=== PATIENT | female | born 1985 | race Caucasian/White ===

== ENCOUNTER 2017-12-12 10:07 | Outpatient (CLI) | payer OTHER | END 2017-12-12 10:08 | disposition home or self-care (01) | LOC: BICMAMMO 10:07 | PROVIDERS: ATTEND Student in an Organized Health Care Education/Training Program | DX: N63.20 Unspecified lump in the left breast, unspecified quadrant (principal) | CPT/HCPCS: 77066; G0279 ==

== ENCOUNTER 2018-05-03 13:46 | Outpatient (CLI) | payer OTHER | END 2018-05-03 13:47 | disposition home or self-care (01) | LOC: BICULT 13:46 | PROVIDERS: ATTEND Internal Medicine Gastroenterology | DX: R10.9 Unspecified abdominal pain (principal) | CPT/HCPCS: 76700; 87177; 87324; 87449 ==

== ENCOUNTER 2018-08-24 12:35 | Outpatient (CLI) | payer OTHER ==
--- NOTE | 2018-08-24 19:21 | NM ---
HEPATOBILIARY SCAN: Comparison: Abdominal ultrasound 05-03-18. History: Right upper quadrant abdominal pain. Evaluate for gallbladder dyskinesia. Technique: A hepatobiliary scan was performed after the administration of 5.5 mCi Technetium 99M Mebr ofenin. FINDINGS: There is prompt uptake of the radiopharmaceutical by the liver. No photopenic liver lesions are seen. Biliary activity is seen within 10 minutes. Gallbladder activity is seen within 15 minutes. Bowel ac tivity is seen within 30 minutes. The gallbladder ejection fraction was estimated after administration of 8 oz of Ensure PO. This was e stimated at 87%. IMPRESSION: Normal hepatobiliary scan. POS: [facility]
== END 2018-08-24 12:36 | disposition home or self-care (01) ==
LOC: NM 12:35
PROVIDERS: ATTEND Internal Medicine Gastroenterology
DX: R10.11 Right upper quadrant pain (principal)
CPT/HCPCS: 78227; A9537

== ENCOUNTER 2019-02-01 11:12 | Emergency (ER) | payer OTHER ==
[2019-02-01] MEDS ORDERED: Ketorolac Tromethamine 60 MG/2 ML VIAL ONE (11:46)
[2019-02-01] MEDS ORDERED: Diazepam 5 MG TAB ONE (11:46)
== END 2019-02-01 12:51 | disposition home or self-care (01) ==
LOC: ERS 11:12
DX: S29.012A Strain of muscle and tendon of back wall of thorax, initial encounter (principal); X50.1XXA Overexertion from prolonged static or awkward postures, initial encounter
CPT/HCPCS: 96372; J1885

== ENCOUNTER 2019-10-31 09:11 | Emergency (ER) | payer OTHER ==
--- NOTE | 2019-10-31 10:58 | RAD ---
XR Chest 1 View Portable HISTORY: Chest pain and pressure. Left arm tingling. COMPARISON: None. FINDINGS: Heart size and mediastinum are within normal limits. The lungs are clear of infiltrates. No significant bony findings. IMPRESSION: No active intrathoracic disease.
[2019-10-31 11:02] LABS: #Basophils 0.1 thou/uL (0.0-0.2); #Eosinphils 0.1 thou/uL (0.0-0.7); #Lymphocytes 1.4 thou/uL (1.20-3.40); #Monocytes 0.6 thou/uL (0.11-0.59); #Neutrophils 7.1 thou/uL (1.40-6.50); %Basophils 0.6 % (0.0-1.0); %Eosinophils 0.5 % (0.0-10.0); %Monocytes 6.6 % (0.0-10.0); %Neutrophils 77.2 % (42.0-75.0); Hemoglobin 14.7 g/dL (12.0-16.0); Mean Corpuscular HGB CONC 33.6 g/dL (32.0-36.0); Mean Corpuscular Hemoglobin 30.7 pg (27.0-31.0); Mean Corpuscular Volume 91.3 fL (78.0-98.0); Mean Platelet Volume 9.2 fL (7.4-10.4); Platelet Count 232 thou/uL (130-400); RBC Distribution Width 11.5 % (11.5-14.5); White Blood Cell (WBC) Count 9.2 thou/uL (4.8-10.8)
--- NOTE | 2019-10-31 11:19 | CT ---
CT BRAIN WITHOUT CONTRAST: HISTORY: Tingling in the left arm, lightheadedness FINDINGS: No evidence of acute infarct, hemorrhage, midline shift or abnormal extra-axial fluid collections is seen. The ventricular size is appropriate and the basilar cisterns are patent. The bony calvarium is intact. The visualized paranasal sinuses and mastoid air cells are well aerated. IMPRESSION: No CT evidence of acute intracranial process.
[2019-10-31 11:33] LABS: ALT (SGPT) 10 U/L (8-55); AST (SGOT) 12 U/L (5-34); Albumin 4.7 g/dL (3.5-5.0); Alkaline Phosphatase 56 U/L (40-110); Anion Gap 13 mmol/L (10-20); BUN (Urea Nitrogen) 10 mg/dL (7.0-18.7); Bilirubin, Total 0.7 mg/dL (0.2-1.2); Calc. Creatinine Clearance 0 mL/min (70-130); Calcium 9.3 mg/dL (7.8-10.44); Carbon Dioxide 23 mmol/L (22-29); Chloride 106 mmol/L (98-107); Estimated GFR-MDRD 78; Globulin 2.8 g/dL (2.4-3.5); Glucose 88 mg/dL (70-105); Potassium 3.9 mmol/L (3.5-5.1); Protein, Total 7.5 g/dL (6.0-8.3); Sodium 138 mmol/L (136-145)
--- NOTE | 2019-10-31 12:16 | MRI ---
MRI Brain WO Con: 10/31/2019 11:24 AM CLINICAL HISTORY: 34-year-old female with tachycardia, chest pressure, numbness and tingling into lef t arm through the fingers that began this morning.. TECHNIQUE: Multiplanar, multisequence images were obtained of the brain. COMPARISON: CT the brain without contrast dated October 31, 2019 FINDINGS: Extra axial spaces: Normal in size and morphology for the patient's age. Hemorrhage: None. Ventricular system: Normal in size and morphology for the patient's age. Basal cisterns: Normal. Cerebral parenchyma: Normal. Midline shift: None. Cerebellum: Normal. Brainstem: Normal. OTHER: Calvarium: Normal. Vascular system: Normal. Visualized Paranasal sinuses: Clear. Visualized Orbits: Normal. Visualized upper cervical spine: Normal. Sella and skull base: Normal. IMPRESSION: No acute intracranial abnormality.
== END 2019-10-31 13:15 | disposition home or self-care (01) ==
LOC: ERS 09:11
DX: R07.89 Other chest pain (principal); G62.9 Polyneuropathy, unspecified; F41.9 Anxiety disorder, unspecified
CPT/HCPCS: 36415; 70450; 70551; 71045; 80053; 84484; 85025; 93005

== ENCOUNTER 2021-01-04 15:43 | Outpatient (CLI) | payer OTHER | END 2021-01-04 15:44 | disposition home or self-care (01) | LOC: BICRAD 15:43 | PROVIDERS: ATTEND Family Medicine | DX: M54.5 Low back pain (principal) | CPT/HCPCS: 72100; 72202 ==

== ENCOUNTER 2022-02-10 08:02 | Outpatient (CLI) | payer BC | END 2022-02-10 08:03 | disposition home or self-care (01) | LOC: RAD 08:02 | PROVIDERS: ATTEND Internal Medicine Rheumatology | DX: M05.79 Rheumatoid arthritis with rheumatoid factor of multiple sites without organ or systems involvement (principal); Z79.899 Other long term (current) drug therapy | CPT/HCPCS: 71046 ==